=== PATIENT | female | born 1975 | race Caucasian/White ===

== ENCOUNTER 2022-03-18 04:45 | Emergency (ER) | payer BC ==
[2022-03-18 05:51] LABS: CHLORIDE,CL 105 mmol/L (98-107); SODIUM,NA 144 mmol/L (136-145)
[2022-03-18 05:52] LABS: ANION GAP 12.4 mmol/L (5-15)
== END 2022-03-18 06:10 | disposition home or self-care (01) ==
LOC: VM.ED 04:45
DX: R00.2 Palpitations (principal)
CPT/HCPCS: 36415; 80053; 82550; 83615; 84443; 84484; 85025; 93005; 93010; 99284; 99285-25

== ENCOUNTER 2022-03-18 12:34 | Emergency (ER) | payer BC ==
[2022-03-18] MEDS: diphenhydrAMINE 50 MG/ML SDV IM ONE (13:56)
[2022-03-18] MEDS: Ketorolac 30 MG/ML SDV IM ONE (13:56)
[2022-03-18] MEDS: Take Home: Ondansetron 4 MG Tab.DIS, 5 Tab Pack PO ONE (15:13)
== END 2022-03-18 15:12 | disposition home or self-care (01) ==
LOC: VM.ED 12:34
DX: G43.909 Migraine, unspecified, not intractable, without status migrainosus (principal); Z79.899 Other long term (current) drug therapy; Z88.0 Allergy status to penicillin
CPT/HCPCS: 96372; 99283; J1200; J1885; J3230; Q0162